=== PATIENT | female | born 1980 ===

== ENCOUNTER 2017-04-14 21:10 | Emergency (ER) | payer SELFPAY ==
[2017-04-14 21:28] VITALS: BP 130/84; PULSE 83; TEMP 99; O2SAT 96
[2017-04-14] MEDS ORDERED: Albuterol-Ipratrop 3 mg / 0.5 (3 ml) UD INH STA ×3 (22:09→22:44)
[2017-04-14] MEDS ORDERED: Albuterol-Ipratrop 3 mg / 0.5 (3 ml) UD ONE (22:14)
--- NOTE | 2017-04-14 23:04 | ED PDOC ---
HPI: SOB/CHF/COPD Time Seen by Provider: 04/14/17 22:00 Chief Complaint (Nursing): Shortness Of Breath Chief Complaint (Provider): shortness of breath History Per: Patient (36 y/o female h/o Asthma recent treatment with prednisone/ albuterol 03/2017 here fore reoccurrence of wheezing not resolved with albuterol inhaler today. Denies any fevers/chills/cough/vomiting.) Past Medical History Reviewed: Historical Data, Nursing Documentation, Vital Signs Vital Signs: Last Vital Signs Temp 99.0 F 04/14/17 21:26 Pulse 83 04/14/17 21:26 Resp 21 04/14/17 22:31 BP 130/84 04/14/17 21:26 Pulse Ox 96 04/15/17 00:34 - Medical History PMH: Asthma Denies: Chronic Kidney Disease - Family History Family History: States: Unknown Family Hx - Home Medications Home Medications: Ambulatory Orders Medication Instructions Recorded Albuterol HFA [Ventolin HFA 90 2 puff IH [id number] #1 puff 03/15/17 mcg/actuation (8 g)] Promethazine [Phenergan] 12.5 mg PO BID #30 tab 03/15/17 predniSONE [predniSONE Tab] 60 mg PO DAILY #9 tab 03/15/17 Albuterol 0.083% [Albuterol 0.083% 2.5 mg IH Q8 PRN #100 neb 04/15/17 Inhal Talya (2.5 mg/3 ml) UD] Ibuprofen [Motrin] 600 mg PO Q8 PRN #21 tab 04/15/17 Mask, Face [Nebulizer Aerosol Mask 1 dev XX PRN PRN #1 dev 04/15/17 Adult] Nebulizer [Aeroeclipse II] 1 each MC Q8 PRN #1 each 04/15/17 predniSONE [predniSONE Tab] 3 tab PO DAILY #12 tab 04/15/17 - Allergies Allergies/Adverse Reactions: Allergies Allergy/AdvReac Type Severity Reaction Status Date / Time Penicillins Allergy RASH Verified 04/14/17 21:29 Review of Systems ROS Statement: Except As Marked, All Systems Reviewed And Found Negative Respiratory: Positive for: Cough, Shortness of Breath Physical Exam - Reviewed Nursing Documentation Reviewed: Yes Vital Signs Reviewed: Yes - Physical Exam Appears: Positive for: Well, Non-toxic, No Acute Distress Head Exam: Positive for: ATRAUMATIC, NORMAL INSPECTION, NORMOCEPHALIC Skin: Positive for: Normal Color, Warm, DRY Eye Exam: Positive for: EOMI, Normal appearance, PERRL ENT: Positive for: Normal ENT Inspection Neck: Positive for: Normal, Painless ROM Cardiovascular/Chest: Positive for: Regular Rate, Rhythm Respiratory: Positive for: Normal Breath Sounds, Wheezing, Respiratory Distress Gastrointestinal/Abdominal: Positive for: Normal Exam, Bowel Sounds, Soft Back: Positive for: Normal Inspection Extremity: Positive for: Normal ROM Neurologic/Psych: Positive for: Alert, Oriented - ECG O2 Sat by Pulse Oximetry: 96 - Progress ED Course And Treament: Patient unable to perform peak flow solumedrol 125 mg iv x 1 dose Duoneb x 3 doses NOTED PEAK FLOW 160 POOR EFFORT. FEELS IMPROVED. 99% PULSE OX WALKING PULSE OX 96% DUONEB X 1 DOSE AT THIS TIME Disposition - Clinical Impression Clinical Impression: Asthma - Patient ED Disposition Is Patient to be Admitted: No - Disposition Referrals: [facility] [Outside] Disposition: Routine/Home Disposition Time: 02:01 Condition: FAIR Prescriptions: Albuterol 0.083% [Albuterol 0.083% Inhal Talya (2.5 mg/3 ml) UD] 2.5 mg IH Q8 PRN #100 neb PRN Reason: Shortness Of Breath Ibuprofen [Motrin] 600 mg PO Q8 PRN #21 tab PRN Reason: Pain, Moderate (4-7) Mask, Face [Nebulizer Aerosol Mask Adult] 1 dev XX PRN PRN #1 dev PRN Reason: Shortness Of Breath Nebulizer [Aeroeclipse II] 1 each MC Q8 PRN #1 each PRN Reason: Shortness Of Breath predniSONE [predniSONE Tab] 3 tab PO DAILY #12 tab Instructions: Asthma (ED) Forms: [employer] (Faroese), [facility] ED School/Work Excuse Print Language: BELARUSIAN
[2017-04-15] MEDS ORDERED: Albuterol-Ipratrop 3 mg / 0.5 (3 ml) UD INH STA (00:33)
[2017-04-15] MEDS ORDERED: Albuterol-Ipratrop 3 mg / 0.5 (3 ml) UD ONE (01:04)
[2017-04-15 01:58] VITALS: RESP 21
--- NOTE | 2017-04-15 08:45 | RAD ---
PROCEDURE: CHEST RADIOGRAPH, 1 VIEW HISTORY: sob COMPARISON: None available at this time. FINDINGS: LUNGS: Clear. PLEURA: No pneumothorax or pleural fluid seen. CARDIOVASCULAR: Normal. OSSEOUS STRUCTURES: No significant abnormalities. VISUALIZED UPPER ABDOMEN: Normal. OTHER FINDINGS: None. IMPRESSION: No acute cardiopulmonary disease appreciated.
== END 2017-04-15 00:34 | disposition home or self-care (01) ==
LOC: H.ER 21:10
DX: J45.909 Unspecified asthma, uncomplicated (principal); Z88.0 Allergy status to penicillin
CPT/HCPCS: 71010; 94640; 96374; 99282; J2930